=== PATIENT | female | born 2000 | race African-American/Black ===

== ENCOUNTER 2023-09-14 03:43 | Emergency (ER) | payer SELFPAY ==
[~2023-09-14] VITALS: Ht 180.3 cm; Wt 73.0 kg
[2023-09-14 03:45] VITALS: O2SAT 99
[2023-09-14] MEDS: ACETAMINOPHEN 325MG TABLET PO ONE (04:45)
[2023-09-14] MEDS: TETANUS, DIPHTHERIA, PERTUSSIS VAC/PF 0.5ML (>10YR OLD) IM ONE (04:45)
[2023-09-14] MEDS: LIDOCAINE HCL/EPINEPHRINE 1%-EPI 1:100,000 20 ML VIAL INFIL ONE (04:45)
[2023-09-14] MEDS: BACITRACIN ZINC OINT UDPKT TOP ONE (04:45)
[2023-09-14 06:35] VITALS: BP 114/72; PULSE 73; RESP 16; TEMP 98.6
== END 2023-09-14 06:35 | disposition home or self-care (01) ==
LOC: ER 03:43 → EDSEX 03:43 → ER 06:35
DX: S01.81XA Laceration without foreign body of other part of head, initial encounter (principal); S59.912A Unspecified injury of left forearm, initial encounter; Y08.89XA Assault by other specified means, initial encounter; Y93.89 Activity, other specified; Y92.89 Other specified places as the place of occurrence of the external cause; Y99.8 Other external cause status
CPT/HCPCS: 70450; 90715; 12013; 90471; 99285; J3490; Z7610